=== PATIENT | female | born 1950 | race Caucasian/White ===

== ENCOUNTER 2017-01-02 07:52 | Day surgery (SDC) | payer MEDICARE, OTHER ==
--- NOTE | 2017-01-02 08:07 | HISTORY & PHYSICAL EXAMINATION ---
HPI - History of Present Illness HPI Comment/Other: Patient is here for screening colonoscopy for family history of colon cancer. Father diagnosed with colon cancer at age 50. Current Meds: CALCIUM-VITAMIN D TABS (CALCIUM-VITAMIN D TABS) Take 1 tab by mouth daily ASPIRIN EC 81 MG TBEC (ASPIRIN) Take one tablet by mouth once daily with food ZOCOR 20 MG TABS (SIMVASTATIN) Take one tablet by mouth at bedtime AZELASTINE HCL 137 MCG/SPRAY SOLN (AZELASTINE HCL) Inhale one to two sprays each nostril twice daily for nasal allergies DETROL 2 MG TABS (TOLTERODINE TARTRATE) Take one table by mouth twice daily LISINOPRIL-HYDROCHLOROTHIAZIDE 20-25 MG TABS (LISINOPRIL-HYDROCHLOROTHIAZIDE) Take one tablet by mouth daily FEXOFENADINE HCL 180 MG ORAL TABS (FEXOFENADINE HCL) Take one tablet by mouth daily for allergies as needed Allergies: * ADHESIVE TAPE (Critical) * LATEX (Severe) Past Medical History: Reviewed history and no changes required: Hypertension Diabetes Claustrophobia Past Surgical History: Reviewed history and no changes required: Tonsilectomy Cesearan section - 2 Family History Summary: Reviewed history and no changes required: 12/24/2016 Mother (biol.) - Has Family History of Diabetes - Entered On: 12/24/2016 Mother (biol.) - Has Family History of Heart Disease - Entered On: 12/24/2016 Father (biol.) - Has Family History of Colon Cancer - Entered On: 12/24/2016 Social History: Reviewed history and no changes required: Risk Factors: Smoked Tobacco Use: Never smoker Drug use: no Alcohol use: yes Type: Wine Drinks per day: Occassionally Exercise: yes Times per week: Daily Type of Exercise: Walking Previous Tobacco Use: Problems were reviewed with the patient during this visit. Medications were reviewed with the patient during this visit. Allergies were reviewed with the patient during this visit. Allergies: * ADHESIVE TAPE (Critical) * LATEX (Severe) Physical Exam General: well developed, well nourished, in no acute distress Lungs: clear bilaterally to A & P Heart: regular rate and rhythm, S1, S2 without murmurs, rubs, gallops, or clicks Abdomen: bowel sounds positive; abdomen soft and non-tender without masses, organomegaly, or hernias noted Pulses: pulses normal in all 4 extremities Neurologic: no focal deficits, CN II-XII grossly intact with normal reflexes, coordination, muscle strength and tone Cervical Nodes: no significant adenopathy Psych: alert and cooperative; normal mood and affect; normal attention span and concentration Problems: Problems Added: 1) Dx of Family history colon cancer-father ([id number]-X77.0) (ICD-V16.0) Impression & Recommendations: Problem # 1: screening for colon cancer for family history of colon cancer will proceed with colonoscopy PMH/PSH - Past Medical History Cardiovascular: positive: Hypertension, High cholesterol Respiratory: positive: Other Endocrine/Autoimmune: positive: Type 2 diabetes, Other GI: positive: Colon polyps, Diverticulitis : positive: Frequency HEENT: positive: Chronic vision loss Musculoskeletal: positive: None MRSA Hx?: No - 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
[2017-01-02] MEDS ORDERED: LACTATED RINGERS 1,000 ML IV ONE ×2 (08:19→10:19)
[2017-01-02] MEDS ORDERED: fentaNYL 100 MCG/2 ML VIAL IVP ONE (08:48)
[2017-01-02] MEDS ORDERED: MIDAZOLAM 2 MG/2 ML VIAL IVP ONE (08:48)
[2017-01-02 10:32] VITALS: BP 152/71
[2017-01-02] MEDS ORDERED: ONDANSETRON ODT 4 MG TABLET ONE (10:55)
== END 2017-01-02 07:53 | disposition home or self-care (01) ==
LOC: SDS 07:52
PROVIDERS: ATTEND Surgery
PROC: 0DBH8ZX Excision of Cecum, Via Natural or Artificial Opening Endoscopic, Diagnostic (ICD-10-PCS; 2017-01-02)
PROC: 0DBN8ZX Excision of Sigmoid Colon, Via Natural or Artificial Opening Endoscopic, Diagnostic (ICD-10-PCS; 2017-01-02)
PROC: 0DBK8ZX Excision of Ascending Colon, Via Natural or Artificial Opening Endoscopic, Diagnostic (ICD-10-PCS; principal; 2017-01-02 08:45)
DX: Z12.11 Encounter for screening for malignant neoplasm of colon (principal); Z80.0 Family history of malignant neoplasm of digestive organs; D12.2 Benign neoplasm of ascending colon; D12.0 Benign neoplasm of cecum; K63.5 Polyp of colon; K57.30 Diverticulosis of large intestine without perforation or abscess without bleeding; I10 Essential (primary) hypertension; E11.9 Type 2 diabetes mellitus without complications; Z79.82 Long term (current) use of aspirin; E78.00 Pure hypercholesterolemia, unspecified; Z82.49 Family history of ischemic heart disease and other diseases of the circulatory system; Z91.040 Latex allergy status
CPT/HCPCS: 45380; 45385; J7120; Q0162

== ENCOUNTER 2019-05-05 12:52 | Outpatient (CLI) | payer MEDICARE, OTHER ==
--- NOTE | 2019-05-05 15:31 | Ultrasound Report ---
Reason: ABNORMAL MAMMO RT BREAST Procedure Date: 05/05/2019 Accession Number: [id number] / [id number] Procedure: US - Breast Unilateral Limited CPT Code: Final Report FULL RESULT: EXAM: Diag Special Views Dig RT with tomography, Breast Unilateral Limited DATE: 05/05/2019 2:10 PM CLINICAL HISTORY: The patient is a 68-year-old female recalled from screening mammogram for diagnostic evaluation of the right breast. MAMMOGRAM TECHNIQUE: (R) - Right diagnostic views with tomography. COMPARISON: 04/07/2019 PARENCHYMAL PATTERN: FINDINGS: An isodense mass is confirmed in the posterior lateral position on targeted diagnostic imaging. This is morphologically most consistent with a benign intramammary lymph node. There are no mammographically suspicious features. ULTRASOUND FINDINGs: TECHNIQUE: High-frequency transducer was utilized to evaluate the lower outer quadrant (area of mammographic finding. Surgical Training Specialist static images obtained. Doppler utilized. FINDINGS: A benign intramammary lymph node is confirmed in the 9:30 axis 11 cm from the nipple measuring 8 mm in maximal dimension. This corresponds to the mammographic finding. There are no sonographically suspicious features. IMPRESSION: Benign findings. BI-RADS category 2. RECOMMENDATION: (ANNUAL) - Recommend routine annual screening mammography. BI-RADS CATEGORY: (2) - Benign Findings. STANDARD QUALIFYING STATEMENTS: 1. This examination was not reviewed with the aid of Computer-Aided Detection (CAD). 2. A negative or benign imaging report should not preclude biopsy if clinically suspicious findings are present. 3. Dense breasts may obscure an underlying neoplasm. 4. This examination was reviewed with the aid of 3D breast imaging (tomosynthesis).
== END 2019-05-05 12:53 | disposition home or self-care (01) ==
LOC: DI 12:52
PROVIDERS: ATTEND Internal Medicine
DX: R92.8 Other abnormal and inconclusive findings on diagnostic imaging of breast (principal)
CPT/HCPCS: 76642

== ENCOUNTER 2021-01-26 13:51 | Outpatient (CLI) | payer MEDICARE, OTHER ==
--- NOTE | 2021-01-26 15:08 | DEXA Report ---
PROCEDURE: Dexa Spine and/or Hip INDICATIONS: ASYMPTOMATIC POST MENOPAUSAL STATE TECHNIQUE: Dual energy x-ray absorptiometry (DXA) was performed on a [employer] System. Regions measur ed are the AP Spine, femoral neck, and if needed forearm. COMPARISON: None. FINDINGS: Lumbar Spine: Bone Mineral Density 1.210 g/cm/cm,T score 0.3, Left Hip: Bone Mineral Density 0.841 g/cm/cm,T score -1.3, Left Femoral Neck: Bone Mineral Density 0.843 g/cm/cm, T score -1.4, (T score greater or equal to -1.0: NORMAL) (T score from -1.1 to -2.4: OSTEOPENIA) (T score less than or equal to -2.5 to: OSTEOPOROSIS) Impression: Osteopenia. Patients with diagnosis of osteoporosis or osteopenia should have regular bone mineral density assess ment. For those eligible for Medicare, routine testing is allowed once every 2 years. Testing frequ ency can be increased for patients who have rapidly progressing disease or for those who are receivin g medical therapy to restore bone mass. Reviewed by: Denzel Soria MD on 01/26/2021 3:07 PM PDT Approved by: Denzel Soria MD on 01/26/2021 3:07 PM PDT Station ID: [id number]
== END 2021-01-26 13:52 | disposition home or self-care (01) ==
LOC: DI 13:51
PROVIDERS: ATTEND Internal Medicine
DX: Z78.0 Asymptomatic menopausal state (principal); M85.89 Other specified disorders of bone density and structure, multiple sites

== ENCOUNTER 2021-02-06 12:35 | Outpatient (CLI) | payer MEDICARE, OTHER ==
--- NOTE | 2021-02-07 12:55 | Mammography Report ---
BILATERAL DIGITAL SCREENING MAMMOGRAM 3D/2D: 02/06/2021 CLINICAL: Routine screening. Comparison is made to exams dated: 05/05/2019 ultrasound, 05/05/2019 mammogram, 04/07/2019 mammogram - [facility], and 12/09/2016 mammogram - [facility]. There are scattered fib roglandular elements in both breasts. There is a 1.4 cm low density focal asymmetry with a microlobulated margin in the left breast at 3 o' clock middle depth. Finding is seen only on tomography. This is more prominent. No other significant masses, calcifications, or other findings are seen in either breast. IMPRESSION: INCOMPLETE: NEEDS ADDITIONAL IMAGING EVALUATION The 1.4 cm low density focal asymmetry in the left breast resembles a cyst and is indeterminate. Additional views with possible ultrasound are recommended. This exam was interpreted at Station ID: [id number]. NOTE: For mammograms, a report in lay terms will be sent to the patient. Approximately 15% of breast malignancies will not be visualized mammographically. In the management of a palpable breast mass, a negative mammogram must not discourage biopsy of a clinically suspicious lesion. Electronically Signed By: Mukesh Bob M.D. slc/:02/06/2021 14:09:39 ACR BI-RADS Category 0: Incomplete 3340F PARENCHYMAL PATTERN: (A) - The breast(s) demonstrate(s) scattered fibroglandular densities. BI-RADS CATEGORY: (0) - 0 Mammo and [place] [id number] Immediate follow-up LATERALITY: (B)
== END 2021-02-06 12:36 | disposition home or self-care (01) ==
LOC: DI.N 12:35
DX: Z12.31 Encounter for screening mammogram for malignant neoplasm of breast (principal); R92.8 Other abnormal and inconclusive findings on diagnostic imaging of breast

== ENCOUNTER 2021-03-14 11:02 | Outpatient (CLI) | payer MEDICARE, OTHER ==
--- NOTE | 2021-03-15 09:56 | Mammography Report ---
UNILATERAL LEFT DIGITAL DIAGNOSTIC MAMMOGRAM 3D/2D: 03/14/2021 CLINICAL: Patient returns today to evaluate a focal asymmetry in the left breast. Comparison is made to exams dated: 02/06/2021 mammogram, 05/05/2019 ultrasound, 05/05/2019 mammogram, mammogram - [facility], and 12/09/2016 mammogram - [facility]. The re are scattered fibroglandular elements in left breast. There is a 1.4 cm low density focal asymmetry with a microlobulated margin in the left breast central to the nipple middle depth. Finding is seen only on tomography. This is more prominent. No other significant masses or calcifications are seen in the breast. IMPRESSION: INCOMPLETE: NEEDS ADDITIONAL IMAGING EVALUATION The 1.4 cm low density focal asymmetry in the left breast resembles a cyst or clustered cysts and is indeterminate. An ultrasound is recommended. This exam was interpreted at Station ID: [id number]. NOTE: For mammograms, a report in lay terms will be sent to the patient. Approximately 15% of breast malignancies will not be visualized mammographically. In the management of a palpable breast mass, a negative mammogram must not discourage biopsy of a clinically suspicious lesion. Electronically Signed By: Sandor Sheldon M.D., jr/eleazar:03/14/2021 12:30:15 ACR BI-RADS Category 0: Incomplete 3340F PARENCHYMAL PATTERN: (A) - The breast(s) demonstrate(s) scattered fibroglandular densities. BI-RADS CATEGORY: (0) - 0 Ultrasound [id number] Immediate follow-up LATERALITY: (B)
--- NOTE | 2021-03-15 09:56 | Ultrasound Report ---
LIMITED ULTRASOUND OF LEFT BREAST: 03/14/2021 CLINICAL: Patient returns today to evaluate a focal asymmetry in the left breast. Comparison is made to exams dated: 03/14/2021 mammogram, 02/06/2021 mammogram, 05/05/2019 ultrasound, 1 07/06/2018 mammogram, 04/07/2019 mammogram - [facility], and 12/09/2016 mammogram - [facility]. Color flow ultrasound of the left breast 3 o'clock region was performed. Carroll scale images of the r eal-time examination were reviewed. There is a possible 1.4 cm cluster of micro cysts in the left breast at 3 o'clock middle depth. IMPRESSION: PROBABLY BENIGN The possible 1.4 cm cluster of micro cysts in the left breast is probably benign. Follow-up mammogra m and ultrasound in 6 months is recommended. A follow-up mammogram and an ultrasound in 6 months is recommended to demonstrate stability. This exam was interpreted at Station ID: [id number]. Electronically Signed By: Sandor Sheldon M.D., jr/eleazar:03/14/2021 12:31:03 Ultrasound BI-RADS: 3 Probably benign BI-RADS CATEGORY: (3) - 3 Mammo and US [id number] 6 month follow-up LATERALITY: (B)
== END 2021-03-14 11:03 | disposition home or self-care (01) ==
LOC: DI 11:02
PROVIDERS: ATTEND Internal Medicine
DX: R92.8 Other abnormal and inconclusive findings on diagnostic imaging of breast (principal)

== ENCOUNTER 2023-11-10 11:32 | Day surgery (SDC) | payer MEDICARE, OTHER ==
[2023-11-10] MEDS: LACTATED RINGERS 1,000 ML IV ONE ×2 (11:36→13:01)
[2023-11-10] MEDS ORDERED: LIDOCAINE-MPF 2% 5 ML VIAL ONE (12:27)
[2023-11-10] MEDS ORDERED: PROPOFOL 200 MG/20 ML VIAL IVP ONE (12:27)
--- NOTE | 2023-11-10 12:27 | ANESTHESIA ---
Pre-Anesthesia VS, & Labs - Diagnosis family hx of colon Ca, personal hx of polyps - Procedure colonoscopy Vital Signs: Temp Pulse Resp BP Pulse Ox O2 Flow Rate 36.5 C 115 H 14 148/90 H 97 11/10/23 11:41 11/10/23 11:41 11/10/23 11:41 11/10/23 11:41 11/10/23 11:41 Height: 5 ft 2 in Weight (kg): 69.7 kg Body Mass Index: 28.0 BMI Classification: Overweight - NPO >8 hours - Is Patient ?: No - Lab Results Current Lab Results: Laboratory Tests 11/10/23 12:06: POC Whole Bld Glucose 156 H Home Medications and Allergies Home Medications: Ambulatory Orders Lisinopril [Zestril] 10 mg ORAL DAILY 11/07/23 Montelukast [Singulair] 10 mg PO DAILY 11/10/23 Aspirin [Adult Low Dose Aspirin EC] 81 mg PO DAILY 01/02/17 Azelastine HCl 1 spray NS BID PRN 01/02/17 Calcium Carbonate/Vitamin D3 [Calcium 500-Vit D3 200 Tablet] 1 each PO BID 01/02/17 Fexofenadine HCl [Dalila Allergy] 180 mg PO DAILY 01/02/17 Simvastatin [Zocor] 20 mg PO QPM 01/02/17 Tolterodine Tartrate [Detrol] 2 mg PO DAILY 01/02/17 Lisinopril [Zestril] 10 mg ORAL DAILY 11/07/23 Montelukast [Singulair] 10 mg PO DAILY 11/10/23 Allergies/Adverse Reactions: Allergies Allergy/AdvReac Type Severity Reaction Status Date / Time adhesive AdvReac Rash Verified 11/10/23 11:56 latex AdvReac Rash Verified 11/10/23 11:56 sulfamethoxazole AdvReac Rash Verified 11/10/23 11:56 [From Bactrim] trimethoprim [From Bactrim] AdvReac Rash Verified 11/10/23 11:56 Anes History & Medical History - Anesthetic History Anesthesia Complications: reports: No previous complications Family history of Anesthesia Complications: Denies Family history of Malignant Hyperthermia: Denies - Medical History Cardiovascular: reports: Hypertension, High cholesterol Pulmonary: reports: None Gastrointestinal: reports: None Urinary: reports: Other Musculoskeletal: reports: Osteopenia Endocrine/Autoimmune: reports: Type 2 diabetes Skin: reports: None Smoking Status: Never smoker Psychosocial: reports: No issues indicated - Surgical History General: reports: Colonoscopy Eyes Ears Nose Throat (EENT): reports: Tonsil/Adenoidectomy Gynecologic: reports: section Exam General: Alert, Oriented x3, Cooperative Dental: WNL Mouth Openin Fingerbreadth Neck Mobility: Normal Mallampati classification: II Thyromental Distance: 4-6 cm Respiratory: Lungs clear Cardiovascular: Regular rate Plan Anesthesia Type: General, Total IV Consent for Procedure(s) Verified and Reviewed: Yes Code Status: Attempt Resuscitation ASA classification: 2-Mild systemic disease Is this case an emergency?: No
[2023-11-10] MEDS ORDERED: ONDANSETRON 4 MG/2 ML VIAL ONE (12:32)
[2023-11-10 13:12] VITALS: O2SAT 98
[2023-11-10 13:32] VITALS: BP 148/78
--- NOTE | 2023-11-10 16:59 | ANESTHESIA POST OP EVALUATION ---
Anesthesia Post Eval - Post Anesthesia Eval Vitals: Last Vital Signs Temp 36.3 C L 11/10/23 13:16 Pulse 80 11/10/23 13:16 Resp 15 11/10/23 13:16 BP 148/78 H 11/10/23 13:16 Pulse Ox 98 11/10/23 13:16 O2 Flow Rate CV Function Including HR & BP: Stable Pain Control: Satisfactory Nausea & Vomiting: Negative Mental Status: Baseline Respiratory Status: Airway Patent Hydration Status: Satisfactory Anesthesia Complications: None
== END 2023-11-10 11:33 | disposition home or self-care (01) ==
LOC: SDS 11:32
PROVIDERS: ATTEND Surgery
PROC: 0DBN8ZZ Excision of Sigmoid Colon, Via Natural or Artificial Opening Endoscopic (ICD-10-PCS; 2023-11-10)
PROC: 0DBH8ZZ Excision of Cecum, Via Natural or Artificial Opening Endoscopic (ICD-10-PCS; 2023-11-10)
PROC: 0DBK8ZZ Excision of Ascending Colon, Via Natural or Artificial Opening Endoscopic (ICD-10-PCS; principal; 2023-11-10 13:00)
DX: Z12.11 Encounter for screening for malignant neoplasm of colon (principal); D12.0 Benign neoplasm of cecum; D12.2 Benign neoplasm of ascending colon; D12.5 Benign neoplasm of sigmoid colon; K57.30 Diverticulosis of large intestine without perforation or abscess without bleeding; Z80.0 Family history of malignant neoplasm of digestive organs; I10 Essential (primary) hypertension; E11.9 Type 2 diabetes mellitus without complications
CPT/HCPCS: 45380; 45385; J7120

== ENCOUNTER 2024-01-08 08:46 | Outpatient (CLI) | payer MEDICARE, OTHER ==
--- NOTE | 2024-01-09 10:54 | Ultrasound Report ---
LIMITED ULTRASOUND OF LEFT BREAST: 01/08/2024 CLINICAL: Patient returns today to evaluate a focal asymmetry in the left breast. Comparison is made to exams dated: 01/08/2024 mammogram - [facility], 12/01/2023 mammo gram, 12/04/2022 mammogram, 12/06/2021 ultrasound, 12/06/2021 ultrasound - [facility], and 021 ultrasound - [facility]. Color flow and real-time ultrasound of the left breast 9-10 o'clock region were performed. Carroll sca le images of the real-time examination were reviewed. There is a 0.8 cm x 0.5 cm x 0.7 cm wider than tall oval cyst in the left breast at 10 o'clock electronics processor ior depth 5 cm from the nipple. This oval cyst is anechoic with posterior acoustic enhancement. Thi s correlates with mammography findings. Color flow imaging demonstrates that there is no vascularity present. IMPRESSION: BENIGN There is no sonographic evidence of malignancy. The 0.8 cm x 0.5 cm x 0.7 cm wider than tall oval cyst in the left breast is consistent with a simple cyst and is benign. A 1 year screening mammogram is recommended. Findings and recommendations were conveyed to the patient during today's evaluation. This exam was interpreted at Station ID: [id number]. Electronically Signed By: Markos Clayton M.D. aty/:01/08/2024 10:48:27 Ultrasound BI-RADS: 2 Benign BI-RADS CATEGORY: (2) - 2 RECOMMENDATION: (ANNUAL) - Recommend routine annual screening mammography. [id number] 1 year screening LATERALITY: (B)
--- NOTE | 2024-01-09 10:54 | Mammography Report ---
UNILATERAL LEFT DIGITAL DIAGNOSTIC MAMMOGRAM 3D/2D WITH SPOT COMPRESSION: 01/08/2024 CLINICAL: Patient returns today to evaluate a focal asymmetry in the left breast. Comparison is made to exams dated: 12/01/2023 mammogram, 12/04/2022 mammogram - [facility], mammogram, 02/06/2021 mammogram, 05/05/2019 mammogram, and 04/07/2019 mammogram - [facility]. There are scattered areas of fibroglandular density in the left breast (category b / 25%-50% glandula r tissue). There is an oval focal asymmetry in the left breast at 11 o'clock posterior depth. This is seen in a dditional views. No other significant masses or calcifications are seen in the breast. IMPRESSION: INCOMPLETE: NEEDS ADDITIONAL IMAGING EVALUATION The oval focal asymmetry in the left breast resembles a cyst and is indeterminate. An ultrasound is recommended for further evaluation and is scheduled to immediately follow this examination. Based on the Tyrer Cuzick model (a risk assessment model) the patient's lifetime risk is 4.4% and her 10 year risk is 3.3%. According to the ACR, ACS, and NCCN guidelines, an annual breast MRI exam baljinder g with mammogram is recommended if the patient's lifetime risk is 20% or greater. This exam was interpreted at Station ID: [id number]. NOTE: For mammograms, a report in lay terms will be sent to the patient. Approximately 15% of breast malignancies will not be visualized mammographically. In the management of a palpable breast mass, a negative mammogram must not discourage biopsy of a clinically suspicious lesion. Electronically Signed By: Markos Clayton M.D. aty/:01/08/2024 10:10:55 ACR BI-RADS Category 0: Incomplete 3340F PARENCHYMAL PATTERN: (A) - The breast(s) demonstrate(s) scattered fibroglandular densities. BI-RADS CATEGORY: (0) - 0 Ultrasound [id number] Immediate follow-up LATERALITY: (L)
== END 2024-01-08 08:47 | disposition home or self-care (01) ==
LOC: DI 08:46
PROVIDERS: ATTEND Family Medicine
DX: N60.02 Solitary cyst of left breast (principal); R92.322 Mammographic fibroglandular density, left breast